=== PATIENT | male | born 1995 | race Caucasian/White ===

== ENCOUNTER 2017-09-14 06:55 | Emergency (ER) | payer OTHER ==
[2017-09-14 07:06] VITALS: BP 137/87; PULSE 100; TEMP 98.5
[2017-09-14] MEDS ORDERED: DIPH,PERTUS(ACELL)TETVAC-LF 0.5 ML VIAL IM ONE (07:08)
[2017-09-14] MEDS ORDERED: LIDOCAINE 1% INJ 10MG/ML (20 ML MDV) SQ STA (07:08)
--- NOTE | 2017-09-14 07:28 | ED ---
General Adult HPI - General Chief complaint: Wound/Laceration Stated complaint: finger lac-[facility] Time Seen by Provider: 09/14/17 07:07 Source: patient, RN notes reviewed Mode of arrival: ambulatory Limitations: no limitations - History of Present Illness Initial comments: Patient 22-year-old male presented to the emergency room today with a chief complaint of laceration to the right middle finger. Patient does admit that he was at work and got caught on a sharp piece of plastic. Patient states he has full range of motion. Patient states pain locally to the laceration site. Patient states unsure of his tetanus status. Patient denies any recent fever, chills, shortness of breath, chest pain, back pain, abdominal pain, nausea or vomiting, constipation or diarrhea, headaches or visual changes, or any other complaints. - Related Data Home Medications Medication Instructions Recorded Confirmed No Known Home Medications 09/14/17 09/14/17 Allergies Allergy/AdvReac Type Severity Reaction Status Date / Time No Known Allergies Allergy Verified 09/14/17 07:05 Review of Systems ROS Statement: Those systems with pertinent positive or pertinent negative responses have been documented in the HPI. ROS Other: All systems not noted in ROS Statement are negative. Past Medical History Past Medical History: No Reported History History of Any Multi-Drug Resistant Organisms: None Reported Past Surgical History: No Surgical Hx Reported Past Psychological History: No Psychological Hx Reported Smoking Status: Never smoker Past Alcohol Use History: Occasional Past Drug Use History: Marijuana General Exam - General Exam Comments Initial Comments: General: The patient is awake and alert, in no distress, and does not appear acutely ill. Neck: The neck is supple, there is no tenderness or JVD. Musculoskeletal: Laceration over the PIP joint of the right middle finger. Shows good range of motion. Sensation intact. Radial pulse 2+. Strength 5/5 in all areas. Neurological: A&O x 3. CN II-XII intact, There are no obvious motor or sensory deficits. Coordination appears grossly intact. Speech is normal. Skin: 1 cm laceration over the PIP joint posteriorly of the right middle finger. Psychiatric: Normal mood and affect. Limitations: no limitations Course Vital Signs 09/14/17 07:02 Temperature 98.5 F Pulse Rate 100 Respiratory 18 Rate Blood Pressure 137/87 O2 Sat by Pulse 100 Oximetry Procedures - Procedures Initial comment: 1 cm laceration to the right middle finger. The skin was anesthetized at the head of the metacarpal with 1% lidocaine. The laceration was then cleansed with and irrigated with normal saline. The wound was inspected, and there was no evidence of injury to deep structures. No foreign body was noted in the wound. A total of 4 skin sutures were placed utilizing 4-0 nylon. Disposition Clinical Impression: Laceration Disposition: HOME SELF-CARE Condition: Good Instructions: Laceration (ED) Additional Instructions: Please return to the emergency room in 8-10 days to have sutures removed. Please watch for any signs of infection which may include increased pain, swelling, redness, fever or chills. Please return to emergency room for any signs of infection do occur. Please use clean soap and water over the area to prevent scabbing over your stitches. Please leave wound covered for the first 24-48 hours and then leave wound open to air. Please return to the emergency room for any other concerns. Is patient prescribed a controlled substance at d/c from ED?: No Referrals: Víctor Steele DO [Primary Care Provider] - 1-2 days Time of Disposition: 07:29
[2017-09-14 07:33] VITALS: RESP 17
== END 2017-09-14 07:44 | disposition home or self-care (01) ==
LOC: EC 06:55
DX: S61.212A Laceration without foreign body of right middle finger without damage to nail, initial encounter (principal); Z23 Encounter for immunization; W26.8XXA Contact with other sharp object(s), not elsewhere classified, initial encounter; Y93.89 Activity, other specified; Y92.69 Other specified industrial and construction area as the place of occurrence of the external cause; Y99.0 Civilian activity done for income or pay
CPT/HCPCS: 90715; 99282; 12001; 90471; J2001

== ENCOUNTER 2018-06-15 13:49 | Emergency (ER) | payer BC ==
[2018-06-15] MEDS ORDERED: SODIUM CHLORIDE 0.9% 1,000 ML IV STA (14:07)
[2018-06-15] MEDS ORDERED: SODIUM CHLORIDE 0.9% 500 ML 500 ML IV STA (14:07)
[2018-06-15] MEDS ORDERED: HYDROmorphone 0.5 MG/0.5 ML SYRINGE IVP STA ×2 (14:07→15:04)
[2018-06-15] MEDS ORDERED: TAMSULOSIN 0.4 MG CAP.ER.24H PO STA (14:07)
[2018-06-15] MEDS ORDERED: KETOROLAC 30 MG/ML 1 ML VIAL IVP STA (14:07)
[2018-06-15] MEDS ORDERED: ONDANSETRON 4 MG/2 ML VIAL IVP STA (14:07)
--- NOTE | 2018-06-15 14:25 | ED ---
Abdominal Pain HPI - General Chief Complaint: Abdominal Pain Stated Complaint: blood in urine/poss kidney stones Time Seen by Provider: 06/15/18 13:58 Source: patient, RN notes reviewed Mode of arrival: ambulatory Limitations: no limitations - History of Present Illness Initial Comments: 23-year-old male presents emergency department tingling right flank pain. Patient states she was seen at [facility] a few days ago was diagnosed with kidney stone. Patient had a prior CT which showed evidence of multiple kidney stones. Patient had noted hematuria. Patient states pain is unbearable nothing makes the pain feel better or worse. Patient states is currently taking Delancey and ibuprofen. He has not given any Flomax. Patient states when he was in the hospital Toradol and morphine did help him. Patient has no dysuria he does have noted increased urinary frequency. - Related Data Previous Rx's Medication Instructions Recorded HYDROcodone/APAP 10-325MG [Delancey 1 tab PO Q6HR PRN 3 Days #12 tab 06/15/18 10-325] Ketorolac [Toradol] 10 mg PO Q8HR #15 tab 06/15/18 Tamsulosin [Flomax] 0.4 mg PO DAILY #7 cap 06/15/18 Allergies Allergy/AdvReac Type Severity Reaction Status Date / Time No Known Allergies Allergy Verified 06/15/18 14:09 Review of Systems ROS Statement: Those systems with pertinent positive or pertinent negative responses have been documented in the HPI. ROS Other: All systems not noted in ROS Statement are negative. Past Medical History Past Medical History: No Reported History History of Any Multi-Drug Resistant Organisms: None Reported Past Surgical History: No Surgical Hx Reported Past Psychological History: Anxiety Smoking Status: Never smoker Past Alcohol Use History: Occasional Past Drug Use History: None Reported General Exam Limitations: no limitations General appearance: alert, in no apparent distress Head exam: Present: atraumatic, normocephalic, normal inspection Eye exam: Present: normal appearance, PERRL, EOMI. Absent: scleral icterus, conjunctival injection, periorbital swelling ENT exam: Present: normal exam, normal oropharynx, mucous membranes moist Neck exam: Present: normal inspection. Absent: tenderness, meningismus, lymphadenopathy Respiratory exam: Present: normal lung sounds bilaterally. Absent: respiratory distress, wheezes, rales, rhonchi, stridor Cardiovascular Exam: Present: regular rate, normal rhythm, normal heart sounds. Absent: systolic murmur, diastolic murmur, rubs, gallop, clicks GI/Abdominal exam: Present: soft, normal bowel sounds. Absent: distended, tenderness, guarding, rebound, rigid Back exam: Present: CVA tenderness (R). Absent: CVA tenderness (L) Neurological exam: Present: alert, oriented X3, CN II-XII intact Skin exam: Present: warm, dry, intact, normal color. Absent: rash Course Vital Signs 06/15/18 13:51 Temperature 97.5 F L Pulse Rate 96 Respiratory 18 Rate Blood Pressure 122/68 O2 Sat by Pulse 100 Oximetry Medical Decision Making - Medical Decision Making 23-year-old male presented from for flank pain. Patient has a [address] Patient has some edema though there is no signs of infection urinalysis completely clear. We did give strict return precautions. Patient follow-up with urology. - Lab Data Result diagrams: 06/15/18 14:20 06/15/18 14:20 Lab Results 06/15/18 06/15/18 06/15/18 Range/Units 14:14 14:20 14:20 WBC 11.1 H (3.8-10.6) k/uL RBC 5.30 (4.30-5.90) m/uL Hgb 14.5 (13.0-17.5) gm/dL Hct 44.4 (39.0-53.0) % MCV 83.8 (80.0-100.0) fL MCH 27.4 (25.0-35.0) pg MCHC 32.7 (31.0-37.0) g/dL RDW 13.6 (11.5-15.5) % Plt Count 202 (150-450) k/uL Neutrophils % 88 % Lymphocytes % 8 % Monocytes % 3 % Eosinophils % 1 % Basophils % 0 % Neutrophils # 9.7 H (1.3-7.7) k/uL Lymphocytes # 0.9 L (1.0-4.8) k/uL Monocytes # 0.3 (0-1.0) k/uL Eosinophils # 0.1 (0-0.7) k/uL Basophils # 0.0 (0-0.2) k/uL Sodium 141 (137-145) mmol/L Potassium 4.0 (3.5-5.1) mmol/L Chloride 108 H (98-107) mmol/L Carbon Dioxide 23 (22-30) mmol/L Anion Gap 10 mmol/L BUN 14 (9-20) mg/dL Creatinine 1.02 (0.66-1.25) mg/dL Est GFR (CKD-EPI)AfAm >90 (>60 ml/min/1.73 sqM) Est GFR (CKD-EPI)NonAf >90 (>60 ml/min/1.73 sqM) Glucose 97 (74-99) mg/dL Calcium 9.7 (8.4-10.2) mg/dL Total Bilirubin 0.6 (0.2-1.3) mg/dL AST 23 (17-59) U/L ALT 34 (21-72) U/L Alkaline Phosphatase 77 (38-126) U/L Total Protein 7.2 (6.3-8.2) g/dL Albumin 4.5 (3.5-5.0) g/dL Lipase 55 (23-300) U/L Urine Color Yellow Urine Appearance Turbid (Clear) Urine pH 6.0 (5.0-8.0) Ur Specific [place] 1.046 H (1.001-1.035) Urine Protein 1+ H (Negative) Urine Glucose (UA) Negative (Negative) Urine Ketones 1+ H (Negative) Urine Blood Moderate H (Negative) Urine Nitrite Negative (Negative) Urine Bilirubin Negative (Negative) Urine Urobilinogen <2.0 (<2.0) mg/dL Ur Leukocyte Esterase Negative (Negative) Urine RBC 44 H (0-5) /hpf Urine Bacteria Many H (None) /hpf Urine Mucus Many H (None) /hpf Urine Sperm Rare (None) /hpf Disposition Clinical Impression: Ureteral calculi, Flank pain Disposition: HOME SELF-CARE Condition: Stable Instructions (If sedation given, give patient instructions): Kidney Stones (ED) Additional Instructions: Please return to the Emergency Department if symptoms worsen or any other concerns. Prescriptions: Tamsulosin [Flomax] 0.4 mg PO DAILY #7 cap HYDROcodone/APAP 10-325MG [Delancey 10-325] 1 tab PO Q6HR PRN 3 Days #12 tab PRN Reason: Pain Ketorolac [Toradol] 10 mg PO Q8HR #15 tab Is patient prescribed a controlled substance at d/c from ED?: Yes When asked, does pt state using other controlled substances?: No If prescribed controlled substance>3 days was MAPS reviewed?: Prescribed <3 Days If opioid is for acute pain is fill amount 7 days or less?: Yes If Rx opioid, was Start Talking consent form obtained?: Yes Referrals: Víctor Steele DO [Primary Care Provider] - 1-2 days Mckinley Willoughby MD [STAFF PHYSICIAN] - 1-2 days Time of Disposition: 16:11
[2018-06-15 14:31] LABS: Appearance,Urine Turbid (Clear); Bacteria,Urine Many /hpf; Bilirubin,Urine Negative (Negative); Blood,Urine Moderate (Negative); Color,Urine Yellow; Glucose,Urine (UA) Negative (Negative); Ketones,Urine 1+ (Negative); Leukocyte Esterase,Urine Negative (Negative); Mucus,Urine Many /hpf; Nitrite,Urine Negative (Negative); Protein,Urine 1+ (Negative); RBC,Urine 44 /hpf (0-5); Sperm,Urine Rare /hpf; Urobilinogen,Urine <2.0 mg/dL (<2.0)
[2018-06-15 14:40] LABS: Basophils % (A) 0 %; Eosinophils # (A) 0.1 k/uL (0-0.7); Eosinophils % (A) 1 %; HCT 44.4 % (39.0-53.0); HGB 14.5 gm/dL (13.0-17.5); Lymphocytes # (A) 0.9 k/uL (1.0-4.8); Lymphocytes % (A) 8 %; MCH 27.4 pg (25.0-35.0); MCHC 32.7 g/dL (31.0-37.0); MCV 83.8 fL (80.0-100.0); Monocytes # (A) 0.3 k/uL (0-1.0); Monocytes % (A) 3 %; Neutrophils # (A) 9.7 k/uL (1.3-7.7); Neutrophils % (A) 88 %; Platelet Count 202 k/uL (150-450); RDW 13.6 % (11.5-15.5); WBC 11.1 k/uL (3.8-10.6)
[2018-06-15 14:45] LABS: Specific Gravity,Urine 1.046 (1.001-1.035)
[2018-06-15 14:51] LABS: ALT 34 U/L (21-72); AST 23 U/L (17-59); Albumin 4.5 g/dL (3.5-5.0); Alkaline Phosphatase 77 U/L (38-126); Anion Gap 10 mmol/L; Blood Urea Nitrogen 14 mg/dL (9-20); Calcium 9.7 mg/dL (8.4-10.2); Carbon Dioxide 23 mmol/L (22-30); Chloride 108 mmol/L (98-107); Glucose 97 mg/dL (74-99); Lipase 55 U/L (23-300); Sodium 141 mmol/L (137-145); Total Bilirubin 0.6 mg/dL (0.2-1.3); Total Protein 7.2 g/dL (6.3-8.2)
--- NOTE | 2018-06-15 15:01 | XR ---
EXAMINATION TYPE: XR KUB DATE OF EXAM: 06/15/2018 2:50 PM CLINICAL HISTORY: Right flank pain and hematuria TECHNIQUE: Single upright image of the abdomen is obtained. COMPARISON: None. FINDINGS: Scattered gas is seen in nondilated small bowel loops. Gas and fecal material is seen in no ndilated colon. There is no visceromegaly, pneumoperitoneum, or abnormal calcification appreciated. T he lung bases are clear and the osseous structures are intact. IMPRESSION: Nonobstructive bowel gas pattern. No radiopaque renal calculi or calculi along the courses of the ure ters.
--- NOTE | 2018-06-15 15:58 | CT ---
EXAMINATION TYPE: CT abdomen pelvis wo con DATE OF EXAM: 06/15/2018 COMPARISON: None HISTORY: 23-year-old male Right sided pain with hematuria and pain with urination CT DLP: 521 mGycm. Automated exposure control for dose reduction was used. TECHNIQUE: Contiguous axial scanning of the abdomen and pelvis without IV contrast. Coronal and sagit brielle reconstructions performed. FINDINGS: Heart normal size without pericardial effusion. Lung bases clear without pleural effusion. Noncontrast appearance of the liver, gallbladder, adrenal glands, spleen, and pancreas show no gross abnormality. Punctate nonobstructive left renal calculus. A couple punctate 1 to 2 mm calculi lower pole right kidney. There is mild right-sided hydronephrosis . 3 mm calculus at the right ureteral orifice. Moderate perinephric edema and fat stranding and a mor e confluent area of edema measuring 2.1 cm on the right lower pole. No dilated small bowel, free fluid, or free air. No mesenteric or retroperitoneal lymphadenopathy. Normal appendix. Couple diverticula noted within the cecum. Mild stool burden. No pericolonic inflammatory change. Moderate circumferential bladder wall thickening. Pelvic phleboliths. No abnormal fluid collection in the pelvis or pelvic lymphadenopathy. Bones: No osseous destructive process. IMPRESSION: 1. A 3 mm calculus at the right ureteral orifice with mild obstructive uropathy. 2. The degree of moderate perinephric edema and fat stranding is out of portion to the mild hydronep hrosis. Correlate to exclude superimposed infection. There is a more confluent 2.1 cm area of perinep hric edema along the right lower pole. Ultrasound follow-up after treatment to exclude any persistent perinephric fluid collection. 3. Moderate circumferential bladder wall thickening. Correlate to exclude cystitis. 4. Additional punctate 1 to 2 mm nonobstructive renal calculi.
[2018-06-15 16:19] VITALS: BP 129/74; PULSE 74; RESP 16; TEMP 99.2
== END 2018-06-15 16:28 | disposition home or self-care (01) ==
LOC: EC 13:49
DX: N20.1 Calculus of ureter (principal); Z53.29 Procedure and treatment not carried out because of patient's decision for other reasons
CPT/HCPCS: 36415; 80053; 83690; 85025; 81001; 74018; 74176; 99284; 96374; 96375 ×2; 96361; J2405; J1885; J1170

== ENCOUNTER 2018-07-30 20:08 | Emergency (ER) | payer BC ==
[2018-07-30] MEDS ORDERED: DICYCLOMINE 10 MG/ML 2 ML AMP IM STA (20:43)
[2018-07-30] MEDS ORDERED: SODIUM CHLORIDE 0.9% 1,000 ML IV STA (20:43)
[2018-07-30] MEDS ORDERED: PANTOPRAZOLE 40 MG/10 ML VIAL IVP STA (20:43)
[2018-07-30] MEDS ORDERED: KETOROLAC 30 MG/ML 1 ML VIAL IVP STA (20:43)
--- NOTE | 2018-07-30 20:52 | ED ---
Abdominal Pain HPI - General Chief Complaint: Abdominal Pain Stated Complaint: Poss Appendicitis-from urgent care Time Seen by Provider: 07/30/18 20:34 Source: patient, RN notes reviewed, old records reviewed Mode of arrival: ambulatory Limitations: no limitations - History of Present Illness Initial Comments: This is a 23-year-old male the ER for evaluation. Patient sent from urgent care for evaluation regarding possible appendicitis. Patient has 3 history of abdominal bloating right lower quadrant abdominal pain nausea no vomiting occasional hot flashes and he did have a bowel movement today. No history of sick contacts, no family members with similar complaints. Patient did take laxatives 2 days he thought he was having constipation and again had a bowel movement this morning. No fevers. No prior history of surgery medical history patient takes no medications no drugs or alcohol MD Complaint: abdominal pain -: days(s) Location: periumbilical, RLQ, epigastric Radiation: RLQ, suprapubic Migration to: RLQ Severity: mild Severity scale (1-10): 2 Quality: cramping, stabbing Consistency: intermittent Improves With: nothing Worsens With: nothing Associated Symptoms: nausea - Related Data Home Medications Medication Instructions Recorded Confirmed No Known Home Medications 07/30/18 07/30/18 Allergies Allergy/AdvReac Type Severity Reaction Status Date / Time No Known Allergies Allergy Verified 07/30/18 20:42 Review of Systems ROS Statement: Those systems with pertinent positive or pertinent negative responses have been documented in the HPI. ROS Other: All systems not noted in ROS Statement are negative. Past Medical History Past Medical History: No Reported History History of Any Multi-Drug Resistant Organisms: None Reported Past Surgical History: No Surgical Hx Reported Past Psychological History: Anxiety Smoking Status: Never smoker Past Alcohol Use History: Rare Past Drug Use History: Marijuana General Exam - General Exam Comments Initial Comments: No significant Abdominal pain currently Limitations: no limitations General appearance: alert, in no apparent distress Head exam: Present: atraumatic, normocephalic, normal inspection Eye exam: Present: normal appearance, PERRL, EOMI. Absent: scleral icterus, conjunctival injection, periorbital swelling ENT exam: Present: normal exam, mucous membranes moist Neck exam: Present: normal inspection. Absent: tenderness, meningismus, lymphadenopathy Respiratory exam: Present: normal lung sounds bilaterally. Absent: respiratory distress, wheezes, rales, rhonchi, stridor Cardiovascular Exam: Present: regular rate, normal rhythm, normal heart sounds. Absent: systolic murmur, diastolic murmur, rubs, gallop, clicks GI/Abdominal exam: Present: soft, normal bowel sounds. Absent: distended, tenderness, guarding, rebound, rigid Extremities exam: Present: normal inspection, full ROM, normal capillary refill. Absent: tenderness, pedal edema, joint swelling, calf tenderness Back exam: Present: normal inspection Neurological exam: Present: alert, oriented X3, CN II-XII intact Psychiatric exam: Present: normal affect, normal mood Skin exam: Present: warm, dry, intact, normal color. Absent: rash Course Vital Signs 07/30/18 20:26 Temperature 98.0 F Pulse Rate 72 Respiratory 20 Rate Blood Pressure 129/83 O2 Sat by Pulse 100 Oximetry - Reevaluation(s) Reevaluation #1: 07/30/18 21:42 Medical records reviewed Reevaluation #2: 07/30/18 21:42 Patient has no acute distress Medical Decision Making - Medical Decision Making 23 male the ER for evasive bowel pain, labwork is normal CT of pelvis is negative for acute disease. Patient can be discharged home - Lab Data Result diagrams: 07/30/18 20:55 07/30/18 20:55 Lab Results 07/30/18 07/30/18 07/30/18 Range/Units 20:55 20:55 21:10 WBC 6.0 (3.8-10.6) k/uL RBC 5.35 (4.30-5.90) m/uL Hgb 14.4 (13.0-17.5) gm/dL Hct 45.0 (39.0-53.0) % MCV 84.1 (80.0-100.0) fL MCH 27.0 (25.0-35.0) pg MCHC 32.1 (31.0-37.0) g/dL RDW 13.3 (11.5-15.5) % Plt Count 214 (150-450) k/uL Neutrophils % 52 % Lymphocytes % 37 % Monocytes % 6 % Eosinophils % 2 % Basophils % 1 % Neutrophils # 3.2 (1.3-7.7) k/uL Lymphocytes # 2.2 (1.0-4.8) k/uL Monocytes # 0.4 (0-1.0) k/uL Eosinophils # 0.1 (0-0.7) k/uL Basophils # 0.0 (0-0.2) k/uL Sodium 140 (137-145) mmol/L Potassium 3.9 (3.5-5.1) mmol/L Chloride 106 (98-107) mmol/L Carbon Dioxide 24 (22-30) mmol/L Anion Gap 10 mmol/L BUN 12 (9-20) mg/dL Creatinine 0.85 (0.66-1.25) mg/dL Est GFR (CKD-EPI)AfAm >90 (>60 ml/min/1.73 sqM) Est GFR (CKD-EPI)NonAf >90 (>60 ml/min/1.73 sqM) Glucose 89 (74-99) mg/dL Calcium 9.6 (8.4-10.2) mg/dL Total Bilirubin 0.9 (0.2-1.3) mg/dL AST 22 (17-59) U/L ALT 23 (21-72) U/L Alkaline Phosphatase 74 (38-126) U/L Total Protein 7.2 (6.3-8.2) g/dL Albumin 4.5 (3.5-5.0) g/dL Amylase 56 (30-110) U/L Lipase 87 (23-300) U/L Urine Color Yellow Urine Appearance Clear (Clear) Urine pH 6.0 (5.0-8.0) Ur Specific [place] 1.021 (1.001-1.035) Urine Protein Negative (Negative) Urine Glucose (UA) Negative (Negative) Urine Ketones 1+ H (Negative) Urine Blood Negative (Negative) Urine Nitrite Negative (Negative) Urine Bilirubin Negative (Negative) Urine Urobilinogen <2.0 (<2.0) mg/dL Ur Leukocyte Esterase Negative (Negative) - Radiology Data Radiology results: report reviewed (CT of pelvis negative for acute disease), image reviewed Disposition Clinical Impression: Abdominal pain Disposition: HOME SELF-CARE Condition: Good Instructions (If sedation given, give patient instructions): Abdominal Pain (ED) Is patient prescribed a controlled substance at d/c from ED?: No Referrals: Víctor Steele, [Primary Care Provider] - 1-2 days
[2018-07-30 21:14] LABS: Basophils % (A) 1 %; Eosinophils # (A) 0.1 k/uL (0-0.7); Eosinophils % (A) 2 %; HGB 14.4 gm/dL (13.0-17.5); Lymphocytes # (A) 2.2 k/uL (1.0-4.8); Lymphocytes % (A) 37 %; MCHC 32.1 g/dL (31.0-37.0); MCV 84.1 fL (80.0-100.0); Mean Platelet Volume 7.8; Monocytes # (A) 0.4 k/uL (0-1.0); Monocytes % (A) 6 %; Neutrophils # (A) 3.2 k/uL (1.3-7.7); Neutrophils % (A) 52 %; Platelet Count 214 k/uL (150-450); RBC 5.35 m/uL (4.30-5.90); RDW 13.3 % (11.5-15.5)
[2018-07-30 21:19] LABS: Appearance,Urine Clear (Clear); Bilirubin,Urine Negative (Negative); Blood,Urine Negative (Negative); Color,Urine Yellow; Glucose,Urine (UA) Negative (Negative); Ketones,Urine 1+ (Negative); Leukocyte Esterase,Urine Negative (Negative); Nitrite,Urine Negative (Negative); Protein,Urine Negative (Negative); Specific Gravity,Urine 1.021 (1.001-1.035); Urobilinogen,Urine <2.0 mg/dL (<2.0)
[2018-07-30 21:30] LABS: ALT 23 U/L (21-72); AST 22 U/L (17-59); African American GFR (CKD) >90 (>60 ml/min/1.73 sqM); Albumin 4.5 g/dL (3.5-5.0); Alkaline Phosphatase 74 U/L (38-126); Amylase 56 U/L (30-110); Anion Gap 10 mmol/L; Blood Urea Nitrogen 12 mg/dL (9-20); Calcium 9.6 mg/dL (8.4-10.2); Carbon Dioxide 24 mmol/L (22-30); Chloride 106 mmol/L (98-107); Glucose 89 mg/dL (74-99); Lipase 87 U/L (23-300); Potassium 3.9 mmol/L (3.5-5.1); Sodium 140 mmol/L (137-145); Total Bilirubin 0.9 mg/dL (0.2-1.3); Total Protein 7.2 g/dL (6.3-8.2)
--- NOTE | 2018-07-30 21:47 | CT ---
EXAMINATION TYPE: CT abdomen pelvis w con DATE OF EXAM: 07/30/2018 COMPARISON: 06/15/2018 HISTORY: Right side flank and abdominal pain. CT DLP: 727.8 mGycm Automated exposure control for dose reduction was used. TECHNIQUE: Helical acquisition of images was performed from the lung bases through the pelvis. CONTRAST: Performed without Oral Contrast and with IV Contrast, patient injected with 100ml mL of Iso steven 300. FINDINGS: LUNG BASES: No significant abnormality is appreciated. LIVER/GB: No significant abnormality is appreciated. PANCREAS: No significant abnormality is seen. SPLEEN: No significant abnormality is seen. ADRENALS: No significant abnormality is seen. KIDNEYS AND URETERS AND BLADDER: There is no hydronephrosis or hydroureter. No calcifications. Urinar y bladder unremarkable. FREE AIR: No free air is visualized. RETROPERITONEAL ADENOPATHY: None visualized REPRODUCTIVE ORGANS: No significant abnormality is seen PELVIC ADENOPATHY: None visualized. OSSEOUS STRUCTURES: No significant abnormality is seen. BOWEL: No significant abnormality is seen. The cecum is within the right lower quadrant and the appe ndix has normal appearance. OTHER: No acute vascular finding. IMPRESSION: NO ACUTE PROCESS.
[2018-07-30 22:13] VITALS: BP 122/82; PULSE 67; RESP 18; TEMP 98.7
== END 2018-07-30 22:13 | disposition home or self-care (01) ==
LOC: EC 20:08
DX: R10.13 Epigastric pain (principal); R10.33 Periumbilical pain; R10.31 Right lower quadrant pain; R11.0 Nausea
CPT/HCPCS: 36415; 80053; 82150; 83690; 85025; 81003; 87086; 74177; 99284; 96374; 96375; 96361; 96372; J0500; J1885; C9113; Q9967

== ENCOUNTER → 2020-05-23 | Outpatient (CLI) | payer BC | END | disposition home or self-care (01) | LOC: LABWHC1 12:15 | PROVIDERS: ATTEND Emergency Medicine | DX: Z20.822 Contact with and (suspected) exposure to COVID-19 (principal) | CPT/HCPCS: U0003; C9803 ==

== ENCOUNTER 2021-05-16 13:11 | Emergency (ER) | payer BC ==
[2021-05-16 13:46] VITALS: BP 140/92; PULSE 111; RESP 18; TEMP 98.9
[2021-05-16] MEDS ORDERED: ACET/COD 300 MG/30 MG STARTER PACK 6 TAB BTL PO STA (14:49)
--- NOTE | 2021-05-16 14:51 | ED ---
ENT HPI - General Chief complaint: Dental/Oral Stated complaint: Fever/mouth pain/neck pain Time Seen by Provider: 05/16/21 14:30 Source: patient, RN notes reviewed Mode of arrival: ambulatory Limitations: no limitations - History of Present Illness Initial comments: This a 26-year-old male presents emergency Department with chief complaint of right-sided dental pain, facial pain. Patient states this started over the last day or so. He states he had an issue a few weeks ago in which she was seen by oral surgeon is advised that he needs to have his wisdom tooth removed that is embedded into his maxillary sinus. Patient states that he's having recurrent issues again. No difficulty swallowing states she has right-sided ear pain facial pain right-sided neck discomfort. He reports fever at home nothing today. - Related Data Home Medications Medication Instructions Recorded Confirmed No Known Home Medications 07/30/18 07/30/18 Allergies Allergy/AdvReac Type Severity Reaction Status Date / Time No Known Allergies Allergy Verified 05/16/21 13:44 Review of Systems ROS Statement: Those systems with pertinent positive or pertinent negative responses have been documented in the HPI. ROS Other: All systems not noted in ROS Statement are negative. Past Medical History Past Medical History: No Reported History History of Any Multi-Drug Resistant Organisms: None Reported Past Surgical History: No Surgical Hx Reported Past Psychological History: Anxiety Smoking Status: Never smoker Past Alcohol Use History: Rare Past Drug Use History: Marijuana General Exam Limitations: no limitations General appearance: alert, in no apparent distress Head exam: Present: atraumatic, normocephalic, normal inspection Eye exam: Present: normal appearance, PERRL, EOMI. Absent: scleral icterus, conjunctival injection, periorbital swelling ENT exam: Present: mucous membranes moist. Absent: normal exam, normal oropharynx (Right-sided facial tenderness, impacted molar noted) Neck exam: Present: normal inspection, full ROM, lymphadenopathy. Absent: tenderness, meningismus Respiratory exam: Present: normal lung sounds bilaterally. Absent: respiratory distress, wheezes, rales, rhonchi, stridor Cardiovascular Exam: Present: regular rate, normal rhythm, normal heart sounds. Absent: systolic murmur, diastolic murmur, rubs, gallop, clicks Course Vital Signs 05/16/21 13:44 Temperature 98.9 F Pulse Rate 111 H Respiratory 18 Rate Blood Pressure 140/92 O2 Sat by Pulse 99 Oximetry Medical Decision Making - Medical Decision Making Patient has underlying dental infection was started on pen VK will follow-up with his oral surgeon return for worsening changes symptoms. Disposition Clinical Impression: Impacted molar, Dental infection Disposition: HOME SELF-CARE Condition: Stable Instructions (If sedation given, give patient instructions): Toothache (ED) Additional Instructions: Please return to the Emergency Department if symptoms worsen or any other concerns. Is patient prescribed a controlled substance at d/c from ED?: No Referrals: Víctor Steele DO [Primary Care Provider] - 1-2 days Time of Disposition: 14:51
== END 2021-05-16 15:03 | disposition home or self-care (01) ==
LOC: EC 13:11
DX: R50.9 Fever, unspecified (principal); K04.7 Periapical abscess without sinus; K01.1 Impacted teeth
CPT/HCPCS: 99283

== ENCOUNTER 2021-05-18 12:26 | Emergency (ER) | payer BC ==
[2021-05-18 12:38] VITALS: RESP 18; TEMP 96.3
--- NOTE | 2021-05-18 13:59 | ED ---
General Adult HPI - General Chief complaint: Neck Pain/Injury Stated complaint: Revisit/ENT Time Seen by Provider: 05/18/21 12:52 Source: patient, RN notes reviewed, old records reviewed Mode of arrival: ambulatory Limitations: no limitations - History of Present Illness Initial comments: 26-year-old male presents for evaluation of sore throat, right upper tooth pain. Patient was seen in the emergency department prescribed penicillin 2 days prior. He states he was looking up online that his symptoms could be related to meningitis. He states he did have a fever however this is resolved over the past 48 hours. He also has a mild cough and nasal congestion. No known contact with coronavirus for influenza. He has a sore throat. He states that the majority of his symptoms are improving but he wanted to be checked out. - Related Data Previous Rx's Medication Instructions Recorded Penicillin V Potassium [Pen Vee K] 500 mg PO QID #40 tablet 05/16/21 Allergies Allergy/AdvReac Type Severity Reaction Status Date / Time No Known Allergies Allergy Verified 05/18/21 12:38 Review of Systems ROS Statement: Those systems with pertinent positive or pertinent negative responses have been documented in the HPI. ROS Other: All systems not noted in ROS Statement are negative. Past Medical History Past Medical History: No Reported History History of Any Multi-Drug Resistant Organisms: None Reported Past Surgical History: No Surgical Hx Reported Past Psychological History: Anxiety Smoking Status: Never smoker Past Alcohol Use History: Rare Past Drug Use History: Marijuana General Exam Limitations: no limitations General appearance: alert, in no apparent distress Head exam: Present: atraumatic, normocephalic Eye exam: Present: normal appearance, PERRL ENT exam: Absent: normal oropharynx (Bilateral tonsillar swelling and pharyngeal erythema no exudate.) Neck exam: Present: normal inspection, lymphadenopathy (Adenopathy predominantly on the right.) Respiratory exam: Present: normal lung sounds bilaterally. Absent: respiratory distress, wheezes Cardiovascular Exam: Present: regular rate, normal rhythm GI/Abdominal exam: Present: soft. Absent: distended, tenderness, guarding Extremities exam: Present: normal inspection, normal capillary refill. Absent: pedal edema, calf tenderness Neurological exam: Present: alert, oriented X3, CN II-XII intact, normal gait. Absent: motor sensory deficit Psychiatric exam: Present: normal affect, normal mood Skin exam: Present: warm, dry, intact. Absent: cyanosis, diaphoretic Course Vital Signs 05/18/21 12:34 Temperature 96.3 F L Pulse Rate 100 Respiratory 18 Rate Blood Pressure 148/91 O2 Sat by Pulse 100 Oximetry Medical Decision Making - Medical Decision Making I did test this patient for influenza, coronavirus and strep throat. These tests are negative. He has some pharyngeal erythema. He has some dental pain in the right upper jaw. No significant facial swelling. There is no induration no sinus tenderness. His airway is open without stridor. He's afebrile. He is currently on penicillin which I do recommend he continues until he follows up with his dentist. He is given strict return parameters and will return to the emergency department if symptoms persist or worsen. - Lab Data Lab Results 05/18/21 05/18/21 05/18/21 Range/Units 13:20 13:20 13:20 Coronavirus (PCR) Not Detected (Not Detectd) Influenza Type A RNA Not Detected (Not Detectd) Influenza Type B (PCR) Not Detected (Not Detectd) Group A Strep Rapid Negative (Negative) Disposition Clinical Impression: Dental infection, Pharyngitis Disposition: HOME SELF-CARE Condition: Good Instructions (If sedation given, give patient instructions): Pharyngitis (ED), Toothache (ED) Additional Instructions: Please follow up with her dentist and primary care provider. Please return to the emergency department with worsening or changing symptoms. Is patient prescribed a controlled substance at d/c from ED?: No Referrals: Víctor Steele DO [Primary Care Provider] - 1-2 days Time of Disposition: 13:59
[2021-05-18 14:08] VITALS: BP 142/86; PULSE 92
== END 2021-05-18 14:07 | disposition home or self-care (01) ==
LOC: EC 12:26
DX: K04.7 Periapical abscess without sinus (principal); J02.9 Acute pharyngitis, unspecified; Z20.822 Contact with and (suspected) exposure to COVID-19
CPT/HCPCS: 87081; 87430; 87502; 87635; 99283